=== PATIENT | male | born 1985 | race Caucasian/White ===

== ENCOUNTER 2020-03-02 20:14 | Emergency (ER) | payer BC ==
[~2020-03-02] VITALS: Ht 180.3 cm; Wt 164.9 kg
[2020-03-02] MEDS ORDERED: IV NORMAL SALINE 1,000ML 1,000 ML IV ONE (20:30)
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
[2020-03-02 21:06] LABS: BASO # 0.1 x10^3/uL (0.0-0.2); BASO % 1 % (0-3); EOS # 0.4 x10^3/uL (0.0-0.7); EOS % 5 % (0-3); HEMATOCRIT 45.1 % (39.0-53.0); HEMOGLOBIN 15.8 g/dL (13.0-17.5); LYMPH # 1.6 x10^3/uL (1.0-4.8); LYMPH % 19 % (24-48); MEAN CORPUSCULAR HEMOGLOBIN 31 pg (25-35); MEAN CORPUSCULAR HGB CONC 35 g/dL (31-37); MEAN CORPUSCULAR VOLUME 89 fL (79-100); MONO # 0.5 x10^3/uL (0.0-1.1); MONO % 6 % (0-9); NEUT # 5.7 x10^3uL (1.8-7.7); NEUT % 68 % (31-73); PLATELET COUNT 194 x10^3/uL (140-400); RED BLOOD COUNT 5.04 x10^6/uL (4.30-5.70); RED CELL DISTRIBUTION WIDTH 13.3 % (11.5-14.5); WHITE BLOOD COUNT 8.4 x10^3/uL (4.0-11.0)
[2020-03-02 21:12] LABS: GFR 38.7; POTASSIUM 3.3 mmol/L (3.5-5.1)
[2020-03-02] MEDS ORDERED: cloNIDine HCL 0.1 MG TABLET PO ONE (21:15)
[2020-03-02 21:18] LABS: ALBUMIN 4.2 g/dL (3.4-5.0); ALBUMIN/GLOBULIN RATIO 1.3 (1.0-1.7); TOTAL BILIRUBIN 0.9 mg/dL (0.2-1.0); TOTAL PROTEIN 7.4 g/dL (6.4-8.2)
[2020-03-02] MEDS ORDERED: METOCLOPRAMIDE HCL 10 MG/2 ML VIAL. IVP ONE (22:00)
[2020-03-02] MEDS ORDERED: diphenhydrAMINE 50 MG/ML VIAL IVP ONE (22:00)
[2020-03-02 22:28] LABS: BARBITURATES NEG (NEG); BENZODIAZEPINES NEG (NEG); CANNABINOIDS POS (NEG); COCAINE NEG (NEG); METHADONE NEG (NEG); OPIATES NEG (NEG); PHENCYCLIDINE NEG (NEG)
[2020-03-02 22:29] LABS: AMPHETAMINE/METHAMPHETAMINE NEG (NEG)
[2020-03-02 22:40] LABS: COLOR,URINE YELLOW
[2020-03-02 22:41] LABS: BACTERIA,URINE 0 /HPF (0-FEW); BILIRUBIN,URINE NEG (NEG); CLARITY,URINE CLEAR; GLUCOSE,URINE NEG (NEG); HYALINE CASTS, URINE FEW /HPF; NITRITE,URINE NEG (NEG); RBC,URINE OCC /HPF (0-2); SQUAMOUS EPITHELIAL CELL,UR FEW /LPF; UROBILINOGEN,URINE 0.2 mg/dL (0.2 mg/dL); WBC,URINE OCC /HPF (0-4)
[2020-03-02] MEDS ORDERED: HYDR-3165 PO (22:49)
[2020-03-02] MEDS ORDERED: hydrALAZINE 20 MG/ML VIAL. IV ONE (23:15)
[2020-03-02 23:21] VITALS: BP 188/101
== END 2020-03-02 23:23 | disposition home or self-care (01) ==
LOC: ER 20:14
DX: S01.01XA Laceration without foreign body of scalp, initial encounter (principal); S60.512A Abrasion of left hand, initial encounter; S60.511A Abrasion of right hand, initial encounter; S80.812A Abrasion, left lower leg, initial encounter; S80.811A Abrasion, right lower leg, initial encounter; M54.5 Low back pain; I10 Essential (primary) hypertension; V19.40XA Pedal cycle driver injured in collision with unspecified motor vehicles in traffic accident, initial encounter; Y93.I9 Activity, other involving external motion; Y92.488 Other paved roadways as the place of occurrence of the external cause; Y99.8 Other external cause status
CPT/HCPCS: 12002; 36415; 70450; 72125; 80053; 80307; 81001; 85025; 96361; 96374; 99285; J0360; J7030

== ENCOUNTER 2020-11-10 21:10 | Observation (INO) | payer BC ==
[~2020-11-10] VITALS: Ht 180.3 cm; Wt 169.7 kg
[~2020-11-10 21:10] MED LIST: HYDR-3165 PO
[2020-11-10 21:30] LABS: BASO # 0.1 x10^3/uL (0.0-0.2); BASO % 1 % (0-3); EOS # 0.2 x10^3/uL (0.0-0.7); EOS % 3 % (0-3); HEMATOCRIT 46.4 % (39.0-53.0); HEMOGLOBIN 16.1 g/dL (13.0-17.5); LYMPH # 2.5 x10^3/uL (1.0-4.8); LYMPH % 34 % (24-48); MEAN CORPUSCULAR HEMOGLOBIN 31 pg (25-35); MEAN CORPUSCULAR HGB CONC 35 g/dL (31-37); MEAN CORPUSCULAR VOLUME 90 fL (79-100); MONO # 0.6 x10^3/uL (0.0-1.1); MONO % 8 % (0-9); NEUT # 3.9 x10^3uL (1.8-7.7); NEUT % 54 % (31-73); PLATELET COUNT 228 x10^3/uL (140-400); RED BLOOD COUNT 5.18 x10^6/uL (4.30-5.70); RED CELL DISTRIBUTION WIDTH 13.2 % (11.5-14.5); WHITE BLOOD COUNT 7.2 x10^3/uL (4.0-11.0)
[2020-11-10] MEDS ORDERED: ASPIRIN CHEWABLE 81 MG TABLET. PO ONE (21:30)
[2020-11-10] MEDS ORDERED: cloNIDine HCL 0.1 MG TABLET PO ONE (21:30)
[2020-11-10 21:39] LABS: CALCIUM 9.4 mg/dL (8.5-10.1); CREATININE 1.7 mg/dL (0.7-1.3); GFR 46.4; POTASSIUM 3.5 mmol/L (3.5-5.1)
--- NOTE | 2020-11-10 21:41 | PHYS DOC ---
Past History Past Medical History: Hypertension Past Surgical History: Cholecystectomy Alcohol Use: Occasionally General Adult EDM: Chief Complaint: CHEST PAIN HPI: HPI: 35-year-old male presents with chest pain. The patient started to have pain an hour ago. He rates it a 4 out of 10. It is a pressure on the far left side of his chest and shoulder region. He denies overuse. The patient was recently changed a few days ago from amlodipine to other blood pressure medicine. He checked his blood pressure at home and realized it was quite high so he came to the emergency room. He denies shortness of breath or diaphoresis. No fever or chills. Review of Systems: Review of Systems: Constitutional: Denies fever or chills Eyes: Denies change in visual acuity HENT: Denies nasal congestion or sore throat Respiratory: Denies cough or shortness of breath Cardiovascular: Chest pain GI: Denies abdominal pain, nausea, vomiting, bloody stools or diarrhea : Denies dysuria Musculoskeletal: Denies back pain or joint pain Integument: Denies rash Neurologic: Denies headache, focal weakness or sensory changes Endocrine: Denies polyuria or polydipsia Lymphatic: Denies swollen glands Psychiatric: Denies depression or anxiety Allergies: Allergies: Allergies Coded Allergies Type Severity Reaction Last Updated Verified No Known Drug Allergies 03/02/20 No Physical Exam: PE: Constitutional: Well developed, well nourished, morbidly obese, no acute distress, non-toxic appearance. [] HENT: Normocephalic, atraumatic, bilateral external ears normal, oropharynx moist, no oral exudates, nose normal. [] Eyes: PERRLA, EOMI, conjunctiva normal, no discharge. [] Neck: Normal range of motion, no tenderness, supple, no stridor. [] Cardiovascular: Heart rate regular rhythm, no murmur [] Lungs & Thorax: Bilateral breath sounds clear to auscultation [] Abdomen: Bowel sounds normal, soft, no tenderness, no masses, no pulsatile masses. [] Skin: Warm, dry, no erythema, no rash. [] Back: No tenderness, no CVA tenderness. [] Extremities: No tenderness, no cyanosis, no clubbing, ROM intact, no edema. [] Neurologic: Alert and oriented X 3, normal motor function, normal sensory function, no focal deficits noted. [] Psychologic: Affect normal, judgement normal, mood concerned. [] EKG: EKG: Sinus rhythm, rate 92, normal axis, no ST elevation or depressions. [] Radiology/Procedures: Radiology/Procedures: [] Impressions: EXAM: CHEST ONE VIEW. HISTORY: Chest pain. COMPARISON: None. FINDINGS: A frontal view of the chest is obtained. There are no confluent infiltrates. There is no pneumothorax or pleural effusion. The heart is mildly enlarged. IMPRESSION: 1. Mild cardiomegaly. Electronically signed by: Anahi Dillard MD (11/10/2020 10:19 PM) [facility] DICTATED AND SIGNED BY: DANYA DILLARD MD DATE: 11/10/202218 CC: CHELE FERNANDEZ DO; BETINA BANKS MD ~MTH0 0 Heart Score: C/O Chest Pain: Yes HEART Score for Chest Pain: HEART Score for Chest Pain Response (Comments) Value History Moderately Suspicious 1 ECG Nonspecific Repolarizatio 1 Age < 45 0 Risk Factors >3 Risk Factors or Hx CAD 2 Troponin >1-<3x Normal Limit 1 Total 5 Risk Factors: Risk Factors: DM, Current or recent (<one month) smoker, HTN, HLP, family history of CAD, obesity. Risk Scores: Score 0 - 3: 2.5% MACE over next 6 weeks - Discharge Home Score 4 - 6: 20.3% MACE over next 6 weeks - Admit for Clinical Observation Score 7 - 10: 72.7% MACE over next 6 weeks - Early Invasive Strategies Course & Med Decision Making: Course & Med Decision Making Pertinent Labs and Imaging studies reviewed. (See chart for details) The patient's labs are significant for an elevated troponin of 0.119. Patient also has an elevated creatinine that he was unaware of. He does not have known kidney disease. I spoke with the hospitalist, Dr. Donald and he has admitted the p atient for observation and trending of his troponin. The patient is in agreement with this plan. 25 minutes of critical care time was spent on this patient exclusive of other billable procedures. [] Dragon Disclaimer: Dragon Disclaimer: This electronic medical record was generated, in whole or in part, using a voice recognition dictation system. Departure Departure: Disposition: ADMITTED INPATIENT Admitting Physician: Marlon Donald Condition: STABLE Referrals: BETINA BANKS MD (PCP) CHELE FERNANDEZ DO Nov 10, 2020 21:41
[2020-11-10 21:45] LABS: ALBUMIN 4.2 g/dL (3.4-5.0); ALBUMIN/GLOBULIN RATIO 1.3 (1.0-1.7); TOTAL PROTEIN 7.4 g/dL (6.4-8.2)
--- NOTE | 2020-11-10 22:21 | RAD ---
EXAM: CHEST ONE VIEW. HISTORY: Chest pain. COMPARISON: None. FINDINGS: A frontal view of the chest is obtained. There are no confluent infiltrates. There is no pneumothorax or pleural effusion. The heart is mildly enlarged. IMPRESSION: 1. Mild cardiomegaly. Electronically signed by: Anahi Dillard MD (11/10/2020 10:19 PM) [facility]
[2020-11-10] MEDS ORDERED: METOPROLOL TARTRATE 5 MG/5 ML VIAL. IV ONE (22:45)
[2020-11-10] MEDS ORDERED: ONDANSETRON PF 4 MG/2 ML VIAL. IVP PRN (23:00)
[2020-11-10 23:13] LABS: BARBITURATES NEG (NEG); BENZODIAZEPINES NEG (NEG); CANNABINOIDS POS (NEG); COCAINE NEG (NEG); METHADONE NEG (NEG); OPIATES NEG (NEG); PHENCYCLIDINE NEG (NEG)
[2020-11-10 23:15] LABS: AMPHETAMINE/METHAMPHETAMINE NEG (NEG)
--- NOTE | 2020-11-10 23:45 | NUR ---
ADMISSION: The patient, ISRRAEL PETTY, 35 y/o, M admitted by ANDRY LAM MD, was given written information regarding hospital policies, unit procedures and contact persons. Pt arrived to room 119 via [facility], accompanied by [facility] and ED RN. Pt amb independently from gurney to bed, steady gait noted. Pt here for c/o CP onset 1hr [employer] to ED. Pt reports he was sitting down and suddenly became flushed along with the left chest/shoulder pain, and checked his BP which was found to be very high. Pt saw his PCP Whitney Cotto on Sunday and was changed from Norvasc to lisinopril for HTN. Pt denies recent trauma or increase in activity. PMH and home meds reviewed. Pt currently taking Chantix for smoking cessation. Pt low risk for VTE. Pt lives at home with anna and her child. Discussed POC, V/U. Call light in reach. Pt normally wears CPAP at home, placed on 2L via NC for HS. Valuables were checked and logged. Left in room with pt.
--- NOTE | 2020-11-10 23:47 | EKG ---
[address] [address] Test Date: 2020-11-10 Test Time: 21:18:59 Pat Name: ISRRAEL SEE Department: Room: Gender: M Office Messenger: : [id number] Requested By: CHELE FERNANDEZ Order Number: [id number] Reading MD: Measurements Intervals [place] Rate: 92 P: 28 MI: 142 QRS: 1 QRSD: 96 T: 154 QT: 366 QTc: 458 Interpretive Statements SINUS RHYTHM ST & T ABNORMALITY, CONSIDER HIGH LATERAL ISCHEMIA OR LEFT VENTRICULAR STRAIN T ABNORMALITY IN INFEROLATERAL LEADS ABNORMAL ECG RI6.02 No previous ECG available for comparison
[2020-11-11 00:04] VITALS: BP 145/99
[2020-11-11] MEDS ORDERED: LISI20TA18 PO (01:11)
[2020-11-11] MEDS ORDERED: CHLO25TA2 PO (01:11)
[2020-11-11] MEDS ORDERED: ESCITALOPRAM OX10 MG PO (01:11)
[2020-11-11] MEDS ORDERED: VARE1TAB20 PO (01:11)
[2020-11-11 05:34] VITALS: BP 128/83
--- NOTE | 2020-11-11 09:32 | HP ---
ADMIT DATE: 11/10/2020 ATTENDING PHYSICIAN: Dr. Donald. DATE OF ADMISSION: 11/10/2020. DATE OF DICTATION: 11/11/2020. CHIEF COMPLAINT: Left shoulder pain. HISTORY OF PRESENT ILLNESS: The patient is a 35-year-old gentleman who had new onset of left shoulder pain. It radiated to the left side of his chest. He was mowing the lawn the day before. He checked his blood pressure at home and was elevated. The patient has a weight of 377 pounds. He was concerned. He went to the emergency room for evaluation. EKG was nondiagnostic. Chest x-ray was clear. However, his cardiac enzyme and troponin level initially was slightly elevated at 0.11, which is outside of the range. The normal range in our laboratory 0.05. The reason for his elevated troponin, he had a serum creatinine level of 1.7 mg/dL. Due to his diuretic therapy. He does have some risk factors including hypertension and smoking history. He has not had previous evaluation. He was admitted then to the hospital for observation, serial enzymes and formal cardiology consultation. PAST MEDICAL HISTORY: Significant for cholecystectomy. He has essential hypertension. He has morbid obesity. His current weight is 377. His height, weight at one time was 460. He lost some weight just due to diet. He says he has always been big. He was over 300 pounds when he was 19 years old in the high school. PAST SURGICAL HISTORY: Noncontributory. FAMILY HISTORY: Both of his parents are in their 50s and are alive. They are also overweight. SOCIAL HISTORY: He is a smoker. He smokes about a pack a day. No significant alcohol use. CURRENT MEDICATIONS: He has no known drug allergies. He takes chlorthalidone, lisinopril and Lexapro. REVIEW OF SYSTEMS: Significant for the obesity. He has been trying to watch his weight. He has considered a gastric bypass surgery, but is a bit reluctant due to some complications in friends, who had the procedure done in [facility]. No recent COVID exposure. No fevers, chills, nausea. All other systems reviewed and determined to be negative. PHYSICAL EXAMINATION: GENERAL: When I saw him, this is a pleasant gentleman. VITAL SIGNS: Showed a blood pressure of 166/98. When I saw him the next day, it was down to 128/83, pulse is 65 and regular, temperature is normal, oxygen saturation 99% on room air. HEENT: Head is without trauma. Pupils are reactive. Sclerae are nonicteric. Oropharynx is clear. NECK: Supple. No bruits. LUNGS: Clear. CARDIOVASCULAR: Regular. HEART: Sounds no gallops. ABDOMEN: Obese, protuberant. No organomegaly. Bowel sounds were normoactive. EXTREMITIES: Showed no edema. NEUROLOGIC: Grossly intact. SKIN: Warm and dry. LABORATORY DATA: Chest x-ray was clear. EKG nondiagnostic. Regular rhythm. His hemoglobin was 16.1 g/dL with a white count of 7200. The first set of cardiac enzyme, troponin was 0.11. Electrolytes and liver panel within normal range. Creatinine 1.7 mg/dL. Nonfasting blood sugar 123. ASSESSMENT: 1. A 35-year-old gentleman with left shoulder pain due to overuse syndrome. He had been mowing the lawn. 2. Slight elevation of troponin. As per the cardiology workup, it is slightly elevated due to decreased renal clearance. 3. Decreased renal clearance due to diuretic therapy. 4. Essential hypertension. 5. Morbid obesity. 6. History of smoking. PLAN: 1. Observation status. 2. Serial cardiac enzymes. 3. Continue home meds. 4. We will set him up for formal Cardiology evaluation. DRISS DR: Geno TID: [id number] CC: BETINA BANKS MD
--- NOTE | 2020-11-11 10:12 | NUR ---
Discharge Note Patient read discharge instructions, all questions answered in full. Followup appoint with stage builder made. IV discontinued without difficulty. Patient denies pain, SOB, and is being discharged home. Patient walked out per this nurse.
--- NOTE | 2020-11-11 21:10 | DS ---
DATE OF DISCHARGE: 11/11/2020 ATTENDING PHYSICIAN: Dr. Donald. FINAL DISCHARGE DIAGNOSES: 1. Left shoulder pain, coronary ischemia, ruled out. 2. Decreased renal clearance due to chlorthalidone. 3. Essential hypertension. 4. Morbid obesity. 5. History of previous cholecystectomy. HISTORY OF PRESENT ILLNESS: The patient is a very pleasant 35-year-old gentleman who was admitted to the ED last night with atypical, actually, left shoulder pain with some radiation to the chest. He was concerned. He became anxious. His blood pressure was elevated. He was admitted for evaluation. He had a slight elevation of troponin of 0.11. Our laboratory here, the cutoff 0.05. He had decreased renal clearance due to his chlorthalidone diuretic. He was admitted for further treatment evaluation. PHYSICAL EXAMINATION: Please see my dictated note. PERTINENT LABORATORY STUDIES: Three sets of enzymes, all came back at 0.11. Electrolytes within normal range. Nonfasting blood sugar of 123. Liver panel is normal. CBC: Hemoglobin 16.1 grams, normal white count. ECG was nondiagnostic. Chest x-ray was clear without any decompensation. COURSE IN THE HOSPITAL: The patient was admitted. We restarted his lisinopril. Blood pressure improved. He had no further pain. I did setup an outpatient Cardiology evaluation to include most likely a stress test and echocardiogram. I strongly recommended consideration of gastric bypass surgery. He is going to talk with Dr. Banks for a referral. He had been reluctant because of the complication of friend that he had who had the procedure. On the next hospital day, the patient's blood pressure improved, vital signs stable, pain resolved. Reassurance about his enzymes were elevated due to decreased clearance. He was discharged home then with continuation of his citalopram and lisinopril, aspirin 1 daily. No chlorthalidone for now. He will follow up with Dr. Banks. He has the blood pressure monitoring kit, he will bring in his results in a couple of weeks. The patient was then discharged from our hospital in stable condition with explicit instructions and followup care. JANNA/ERICK/LACEY DR: Geno TID: [id number] CC: BETINA BANKS MD
== END 2020-11-11 10:15 | disposition home or self-care (01) ==
LOC: ER 21:10 → 1 SOUTH 22:58
PROVIDERS: ADMIT Hospitalist; ATTEND Hospitalist
DX: M25.512 Pain in left shoulder (principal); R77.8 Other specified abnormalities of plasma proteins; I10 Essential (primary) hypertension; E66.01 Morbid (severe) obesity due to excess calories; R94.4 Abnormal results of kidney function studies; F17.210 Nicotine dependence, cigarettes, uncomplicated; Z90.49 Acquired absence of other specified parts of digestive tract; Z79.899 Other long term (current) drug therapy; Z68.43 Body mass index [BMI] 50.0-59.9, adult; Z98.890 Other specified postprocedural states
CPT/HCPCS: 36415; 71045; 80053; 80307; 84484; 85025; 93005; 96374; 96375; 99285; G0378; J2405; J3490; G0379